=== PATIENT | female | born 1985 | race Caucasian/White ===

== ENCOUNTER 2022-10-28 04:02 | Emergency (ER) | payer MEDICAID, SELFPAY ==
--- NOTE | ~2022-10-28 | CT_ITS ---
EXAMINATION: CT ABDOMEN AND PELVIS WITH CONTRAST CLINICAL INFORMATION: Diffuse pain COMPARISON: None TECHNIQUE: Multidetector volumetric images were obtained from the superior aspect of the liver through the pubic symphysis following administration 85 mL of Omnipaque 350 intravenous contrast. Sagittal and coronal reformatted images were obtained on the technologist's workstation. Oral contrast: No This CT examination was performed using dose optimization techniques as appropriate, variously including the following: *Automated exposure control *Adjustment of mA and/or kV according to patient size (this includes techniques or standardized protocols for targeted exams where dose is matched to indication/reason for exam; i.e. extremities or head) *Use of iterative reconstruction technique DLP: 803 mGy-cm FINDINGS: LUNG BASES: The visualized lung bases are unremarkable. LIVER, GALLBLADDER, AND BILIARY TREE: The liver is normal in size, shape, and attenuation. No focal hepatic lesion or biliary ductal dilatation is present. The gallbladder is unremarkable with no evidence of radiopaque gallstones, gallbladder wall thickening, or obvious pericholecystic inflammatory changes. PANCREAS: Unremarkable. SPLEEN: Unremarkable. ADRENAL GLANDS: Unremarkable. KIDNEYS AND URETERS: The kidneys are normal in size, shape, and attenuation. No hydronephrosis, hydroureter, or calculi seen. No perinephric stranding. BLADDER: Unremarkable. GASTROINTESTINAL TRACT: The small and large bowel are unremarkable. The appendix is unremarkable. ABDOMINAL WALL: No significant hernia is appreciated. LYMPH NODES: Normal. VASCULAR: Unremarkable. PELVIC VISCERA: Uterus and adnexa unremarkable. OSSEOUS STRUCTURES: No acute or suspicious osseous abnormalities. CT/CT abdomen pelvis w IV con IMPRESSION: No acute findings within the abdomen or pelvis to explain the patient's symptomatology.
[2022-10-28 04:27] VITALS: BP 132/76; PULSE 78; RESP 16; TEMP 36.3; O2SAT 98; BMI 33.2
[2022-10-28 04:52] LABS: Basophils Percent Auto 0.4 % (0-2); Eosinophils Absolute Auto 0.2 X10*3/uL (0.0-0.4); Eosinophils Percent Auto 2.6 % (0-4); Hematocrit 34.8 % (37.0-47.0); Hemoglobin 11.3 g/dl (12.0-16.0); Imm Gran Abs Auto 0.02 X10*3/uL (0.00-0.03); Imm Gran Pct Auto 0.2 % (0.0-0.4); Lymphocytes Absolute Auto 2.2 X10*3/uL (1.2-4.9); Lymphocytes Percent Auto 27.7 % (20-40); MANUAL DIFF FLAG NO; Mean Corpuscular HGB Conc 32.5 g/dl (31.0-35.0); Mean Corpuscular Hemoglobin 24.4 pg (27.0-33.0); Mean Platelet Volume 8.8 fL (9.4-12.3); Monocytes Absolute Auto 0.4 X10*3/uL (0.1-1.2); Neutrophils Absolute Auto 5.2 x10*3/uL (2.0-8.3); Neutrophils Percent Auto 64.1 % (45-73); Platelet Count 383 X10*3/uL (160-400); Red Blood Count 4.64 X10*6/uL (4.20-5.50); Red Cell Distribution Width 14.9 % (11.0-16.0)
[2022-10-28 05:02] LABS: IDNOW Serial# 6674DD1D; Strep A Nucleic Acid Negative (Negative)
[2022-10-28 05:06] LABS: Anion Gap 13 (12-20); Blood Urea Nitrogen 8 mg/dL (9-16); Calcium 9.3 mg/dL (8.4-10.2); Carbon Dioxide 25 mmol/L (22-29); Chloride 107 mmol/L (96-108); Creatinine Clr Calc Pharmacy 123.4; Estimated Glomerular Filt Rate > 60; Glucose Random 112 mg/dL (60-115); Potassium 3.7 mmol/L (3.3-5.1); Sodium 141 mmol/L (135-145)
[2022-10-28 05:30] LABS: Influenza A PCR NEGATIVE (Negative); Influenza B PCR NEGATIVE (Negative); Resp Syncy Virus RNA Qual PCR NEGATIVE (Negative); SARS COV2 PCR INHOUSE NEGATIVE (Negative)
[2022-10-28 05:37] VITALS: BP 168/94; PULSE 83; RESP 20; TEMP 36.9; O2SAT 99
[2022-10-28 06:11] LABS: Alanine Aminotransferase 14 U/L (0-31); Albumin Level 4.2 g/dL (3.5-5.0); Alkaline Phosphatase 86 U/L (39-117); Aspartate Amino Transferase 14 U/L (5-31); Bilirubin Direct < 0.2 mg/dL (0.0-0.5); Bilirubin Total 0.5 mg/dL (0.0-1.0); Lipase 12 U/L (8-78); Total Protein 6.5 g/dL (6.5-8.0)
--- NOTE | 2022-10-28 06:50 | ED_ITS ---
HPI - Abdominal Pain General Chief Complaint: Abdominal Pain Stated Complaint: abdominal pain Time Seen by Provider: 10/28/22 06:33 Source: patient History of Present Illness HPI narrative: Patient states she has been having abdominal pain for over 6 months. She states she has been to multiple other emergency department in the state. She has had a CT scan and ultrasound several months ago which apparently were negative. She has seen a rhia but has not had endoscopy. She has tried multiple [id number] meds. Initially she was on Protonix but it stopped helping. Pain is epigastric and bilateral upper abdomen. No radiation to back. Positive nausea without vomiting. She states she has been coughing and it is at strands of blood in it. She also complains of hemorrhoids and states that the bleeding every time she has bowel movement. She cannot recall the last time she has had a bowel movement states she has been constipated which is been an ongoing issue and typically has bowel movements anywhere from every 4 days to every 2 weeks. She has been taking facr-kbo-yczfhus laxatives which he states ?do not f--ing help She denies urinary symptoms. No fevers or chills. Related Data Previous Rx's Medication Instructions Recorded metoclopramide HCl 10 mg tablet 10 mg PO Q6H PRN nausea and 10/28/22 vomiting #30 tabs omeprazole 20 mg capsule,delayed 20 mg PO BID #60 caps 10/28/22 release Allergies Allergy/AdvReac Type Severity Reaction Status Date / Time codeine Allergy Anaphylaxis Verified 10/28/22 04:26 amoxicillin AdvReac Rash Verified 10/28/22 04:26 Review of Systems Comments: No fevers or chills Comments: No chest pain Comments: Cough with hemoptysis. No dyspnea Comments: Abdominal pain is described Comments: No urinary symptoms Comments: No rash Comments: No focal deficit Comments: 10 lb weight loss PMFSH Social History Social History Alcohol intake: never Smoked in Last 30 Days: No Use of substances other than those prescribed or required for medical reasons: No Advance Directives: No Patient : No Physical Exam ED Vital Signs: Vital Signs - 24 hr 10/28/22 04:27 10/28/22 05:37 10/28/22 06:58 Temperature 97.4 F 98.4 F 98 F Pulse Rate 78 83 71 Respiratory Rate 16 20 18 Blood Pressure 132/76 168/94 H 115/48 L Pulse Oximetry 98 99 98 Oxygen Delivery Method Room Air Room Air Room Air 10/28/22 09:59 Temperature 98.2 F Pulse Rate 69 Respiratory Rate 14 Blood Pressure 112/61 Pulse Oximetry 98 Oxygen Delivery Method Room Air BMI result Body Mass Index 33.2 Const Other: Awake and alert. Tearful. Resp Other: Clear and equal bilaterally Cardio Other: Regular rate and rhythm GI Other: Soft. Nondistended. Tender epigastrium. No Hummel sign. No organomegaly. No lower abdominal tenderness. Skin Other: Warm pink and dry Neuro Other: Nonfocal Medical Decision Making Medical Decision Making MDM Narrative: Patient with acute on chronic abdominal pain. Multiple potential etiologies include gastritis, peptic ulcer disease, pancreatitis, gastroparesis, undifferentiated abdominal pain, hepatitis, inflammatory bowel disease, irritable bowel syndrome. Constipation Since pain is mostly epigastric, will treat with GI cocktail and Reglan for now. IV fluids. I discussed with her risks and benefits of further imaging. It has been several months since she has had a CT scan. If she does have inflammatory bowel as it may be worthwhile to do a CT scan to look for inflammatory changes. Diverticulitis would also be diagnosable at this point. 06:55. Workup shows mild anemia with a hemoglobin of 11.3, likely iron deficient with an MCV of 75. Chemistries are unremarkable with a normal creatinine, normal lipase, normal LFTs. Respiratory viral panel negative 10:28. Re-evaluation shows patient is feeling somewhat better after medication. CT scan shows no abnormalities to account for patient's symptoms. I will discharge patient home on omeprazole and Reglan for symptomatic relief and stomach acid control. Will have patient follow-up with gastroenterology and primary care Lab Data 10/28/22 04:46 10/28/22 04:46 Labs: Lab Results 10/28/22 10/28/22 10/28/22 Range/Units 04:46 04:46 04:46 WBC 8.0 (4.8-10.8) X10*3/uL RBC 4.64 (4.20-5.50) X10*6/uL Hgb 11.3 L (12.0-16.0) g/dl Hct 34.8 L (37.0-47.0) % MCV 75.0 L (80.0-98.0) fL MCH 24.4 L (27.0-33.0) pg MCHC 32.5 (31.0-35.0) g/dl RDW 14.9 (11.0-16.0) % Plt Count 383 (160-400) X10*3/uL MPV 8.8 L (9.4-12.3) fL Immature Gran % (Auto) 0.2 (0.0-0.4) % Neut % (Auto) 64.1 (45-73) % Lymph % (Auto) 27.7 (20-40) % [place] % (Auto) 5.0 (2-11) % Eos % (Auto) 2.6 (0-4) % Baso % (Auto) 0.4 (0-2) % Lymph # (Auto) 2.2 (1.2-4.9) X10*3/uL [place] # (Auto) 0.4 (0.1-1.2) X10*3/uL Eos # (Auto) 0.2 (0.0-0.4) X10*3/uL Baso # (Auto) 0.0 (0.0-0.2) X10*3/uL Abs Immat Gran (auto) 0.02 (0.00-0.03) X10*3/uL Absolute Neuts (auto) 5.2 (2.0-8.3) x10*3/uL Absolute Nucleated RBC 0.000 (0.0-0.012) X10*3/uL Nucleated RBC % (auto) 0.0 (0.0-0.2) /100WBC Sodium 141 (135-145) mmol/L Potassium 3.7 (3.3-5.1) mmol/L Chloride 107 (96-108) mmol/L Carbon Dioxide 25 (22-29) mmol/L Anion Gap 13 (12-20) BUN 8 L (9-16) mg/dL Creatinine 0.75 (0.5-1.4) mg/dL Estim Creat Clear Calc 123.4 Estimated GFR > 60 Random Glucose 112 (60-115) mg/dL Lactic Acid (0.5-2.0) mmol/L Calcium 9.3 (8.4-10.2) mg/dL Total Bilirubin 0.5 (0.0-1.0) mg/dL Direct Bilirubin < 0.2 (0.0-0.5) mg/dL AST 14 (5-31) U/L ALT 14 (0-31) U/L Alkaline Phosphatase 86 (39-117) U/L Total Protein 6.5 (6.5-8.0) g/dL Albumin 4.2 (3.5-5.0) g/dL Lipase 12 (8-78) U/L Urine Color Urine Appearance Urine pH (5.0-9.0) Ur Specific [place] (1.005-1.025) Urine Protein (Neg-Trace) mg/dL Urine Glucose (UA) (Negative) mg/dL Urine Ketones (Negative) mg/dL Urine Blood (Negative) Urine Nitrite (Negative) Ur Leukocyte Esterase (Negative) Urine Test (NEGATIVE) Urine Opiates Screen (Not Detect) Urine Fentanyl Screen (Not Detect) Ur Barbiturates Screen (Not Detect) Ur Phencyclidine Scrn (Not Detect) Ur Amphetamines Screen (Not Detect) U Benzodiazepines Scrn (Not Detect) Urine Cocaine Screen (Not Detect) U Marijuana (THC) Screen (Not Detect) Influenza Type A (PCR) (Negative) Influenza Type B (PCR) (Negative) RSV RNA Qual (PCR) (Negative) SARS-CoV-2 RNA (RT-PCR) (Negative) S. pyogenes GrpA [place] Negative (Negative) 10/28/22 10/28/22 10/28/22 Range/Units 04:46 07:48 07:48 WBC (4.8-10.8) X10*3/uL RBC (4.20-5.50) X10*6/uL Hgb (12.0-16.0) g/dl Hct (37.0-47.0) % MCV (80.0-98.0) fL MCH (27.0-33.0) pg MCHC (31.0-35.0) g/dl RDW (11.0-16.0) % Plt Count (160-400) X10*3/uL MPV (9.4-12.3) fL Immature Gran % (Auto) (0.0-0.4) % Neut % (Auto) (45-73) % Lymph % (Auto) (20-40) % [place] % (Auto) (2-11) % Eos % (Auto) (0-4) % Baso % (Auto) (0-2) % Lymph # (Auto) (1.2-4.9) X10*3/uL [place] # (Auto) (0.1-1.2) X10*3/uL Eos # (Auto) (0.0-0.4) X10*3/uL Baso # (Auto) (0.0-0.2) X10*3/uL Abs Immat Gran (auto) (0.00-0.03) X10*3/uL Absolute Neuts (auto) (2.0-8.3) x10*3/uL Absolute Nucleated RBC (0.0-0.012) X10*3/uL Nucleated RBC % (auto) (0.0-0.2) /100WBC Sodium (135-145) mmol/L Potassium (3.3-5.1) mmol/L Chloride (96-108) mmol/L Carbon Dioxide (22-29) mmol/L Anion Gap (12-20) BUN (9-16) mg/dL Creatinine (0.5-1.4) mg/dL Estim Creat Clear Calc Estimated GFR Random Glucose (60-115) mg/dL Lactic Acid 0.8 (0.5-2.0) mmol/L Calcium (8.4-10.2) mg/dL Total Bilirubin (0.0-1.0) mg/dL Direct Bilirubin (0.0-0.5) mg/dL AST (5-31) U/L ALT (0-31) U/L Alkaline Phosphatase (39-117) U/L Total Protein (6.5-8.0) g/dL Albumin (3.5-5.0) g/dL Lipase (8-78) U/L Urine Color Yellow Urine Appearance Cloudy Urine pH 6.0 (5.0-9.0) Ur Specific [place] 1.015 (1.005-1.025) Urine Protein Negative (Neg-Trace) mg/dL Urine Glucose (UA) Negative (Negative) mg/dL Urine Ketones Negative (Negative) mg/dL Urine Blood Negative (Negative) Urine Nitrite Negative (Negative) Ur Leukocyte Esterase Negative (Negative) Urine Test (NEGATIVE) Urine Opiates Screen (Not Detect) Urine Fentanyl Screen (Not Detect) Ur Barbiturates Screen (Not Detect) Ur Phencyclidine Scrn (Not Detect) Ur Amphetamines Screen (Not Detect) U Benzodiazepines Scrn (Not Detect) Urine Cocaine Screen (Not Detect) U Marijuana (THC) Screen (Not Detect) Influenza Type A (PCR) NEGATIVE (Negative) Influenza Type B (PCR) NEGATIVE (Negative) RSV RNA Qual (PCR) NEGATIVE (Negative) SARS-CoV-2 RNA (RT-PCR) NEGATIVE (Negative) S. pyogenes GrpA [place] (Negative) 10/28/22 10/28/22 Range/Units 07:48 07:48 WBC (4.8-10.8) X10*3/uL RBC (4.20-5.50) X10*6/uL Hgb (12.0-16.0) g/dl Hct (37.0-47.0) % MCV (80.0-98.0) fL MCH (27.0-33.0) pg MCHC (31.0-35.0) g/dl RDW (11.0-16.0) % Plt Count (160-400) X10*3/uL MPV (9.4-12.3) fL Immature Gran % (Auto) (0.0-0.4) % Neut % (Auto) (45-73) % Lymph % (Auto) (20-40) % [place] % (Auto) (2-11) % Eos % (Auto) (0-4) % Baso % (Auto) (0-2) % Lymph # (Auto) (1.2-4.9) X10*3/uL [place] # (Auto) (0.1-1.2) X10*3/uL Eos # (Auto) (0.0-0.4) X10*3/uL Baso # (Auto) (0.0-0.2) X10*3/uL Abs Immat Gran (auto) (0.00-0.03) X10*3/uL Absolute Neuts (auto) (2.0-8.3) x10*3/uL Absolute Nucleated RBC (0.0-0.012) X10*3/uL Nucleated RBC % (auto) (0.0-0.2) /100WBC Sodium (135-145) mmol/L Potassium (3.3-5.1) mmol/L Chloride (96-108) mmol/L Carbon Dioxide (22-29) mmol/L Anion Gap (12-20) BUN (9-16) mg/dL Creatinine (0.5-1.4) mg/dL Estim Creat Clear Calc Estimated GFR Random Glucose (60-115) mg/dL Lactic Acid (0.5-2.0) mmol/L Calcium (8.4-10.2) mg/dL Total Bilirubin (0.0-1.0) mg/dL Direct Bilirubin (0.0-0.5) mg/dL AST (5-31) U/L ALT (0-31) U/L Alkaline Phosphatase (39-117) U/L Total Protein (6.5-8.0) g/dL Albumin (3.5-5.0) g/dL Lipase (8-78) U/L Urine Color Urine Appearance Urine pH (5.0-9.0) Ur Specific [place] (1.005-1.025) Urine Protein (Neg-Trace) mg/dL Urine Glucose (UA) (Negative) mg/dL Urine Ketones (Negative) mg/dL Urine Blood (Negative) Urine Nitrite (Negative) Ur Leukocyte Esterase (Negative) Urine Test NEGATIVE (NEGATIVE) Urine Opiates Screen Not Detected (Not Detect) Urine Fentanyl Screen Not Detected (Not Detect) Ur Barbiturates Screen Not Detected (Not Detect) Ur Phencyclidine Scrn Not Detected (Not Detect) Ur Amphetamines Screen Not Detected (Not Detect) U Benzodiazepines Scrn Not Detected (Not Detect) Urine Cocaine Screen Not Detected (Not Detect) U Marijuana (THC) Screen Not Detected (Not Detect) Influenza Type A (PCR) (Negative) Influenza Type B (PCR) (Negative) RSV RNA Qual (PCR) (Negative) SARS-CoV-2 RNA (RT-PCR) (Negative) S. pyogenes GrpA [place] (Negative) Medications Administered Discontinued Medications Generic Name Dose Route Start Last Admin Trade Name Freq PRN Reason Stop Dose Admin Al Hydroxide/Mg Hydroxide 30 ml 10/28/22 06:46 10/28/22 08:57 Magnesium Hydrox/Alum Hydrox 30 Ml Oral.Susp PO 10/28/22 06:47 30 ml ONCE ONE Administration Iohexol 85 ml 10/28/22 09:10 10/28/22 09:11 Iohexol 350 Mg/Ml 100 Ml Infus..Btl IV 10/28/22 09:11 85 ml ONCE ONE Administration Lidocaine HCl 15 ml 10/28/22 06:46 10/28/22 08:57 Lidocaine Hcl Viscous 2 % 15 Ml Solution PO 10/28/22 06:47 15 ml ONCE ONE Administration Metoclopramide HCl 10 mg 10/28/22 06:46 10/28/22 08:55 Metoclopramide Hcl 10 Mg/2 Ml Vial IVPUSH 10/28/22 06:47 10 mg ONCE ONE Administration Ondansetron HCl 4 mg 10/28/22 06:46 10/28/22 08:53 Ondansetron Hcl 4 Mg/2 Ml Vial IVPUSH 10/28/22 06:47 4 mg ONCE ONE Administration Pantoprazole Sodium 40 mg 10/28/22 06:46 10/28/22 08:54 Pantoprazole Sodium 40 Mg/10 Ml Vial IVPUSH 10/28/22 06:47 40 mg ONCE ONE Administration Discharge Plan Discharge Clinical Impression: Abdominal pain Patient Disposition: Home, Self-Care Instructions: Abdominal Pain (ED) Additional Instructions: Reglan, metoclopramide this medication for both nausea and to improve motility of food through the stomach and intestines. Prilosec is to control stomach acid. Follow-up with Gastroenterology for your ongoing abdominal symptoms. Primary care for other health maintenance. Prescriptions: New omeprazole 20 mg capsule,delayed release(DR/EC) 20 mg PO BID Qty: 60 0RF metoclopramide HCl 10 mg tablet 10 mg PO Q6H PRN (Reason: nausea and vomiting) Qty: 30 0RF
[2022-10-28 06:58] VITALS: BP 115/48; PULSE 71; RESP 18; TEMP 36.6; O2SAT 98
[2022-10-28 08:08] LABS: Amphetamine Screen Urine Not Detected (Not Detect); Barbiturates, Urine Not Detected (Not Detect); Benzodiazepines Screen Urine Not Detected (Not Detect); Cannabinoid Screen Urine Not Detected (Not Detect); Cocaine Screen Urine Not Detected (Not Detect); Fentanyl, urine Not Detected (Not Detect); Lactic Acid 0.8 mmol/L (0.5-2.0); Opiate Screen Urine Not Detected (Not Detect); Phencyclidine Screen Urine Not Detected (Not Detect)
[2022-10-28 08:14] LABS: Appearance Urine Cloudy; Color Urine Yellow; Glucose Urine UA Negative (Negative); Leukocyte Esterase Urine Negative (Negative); Nitrite Urine Negative (Negative); Specific Gravity - Urine 1.015 (1.005-1.025); Urine Blood Negative (Negative); Urine Ketones Negative (Negative); Urine Protein Negative (Neg-Trace)
[2022-10-28 08:15] LABS: UPreg QC Valid YES; Urine Pregnancy NEGATIVE (NEGATIVE)
[2022-10-28] MEDS: ondansetron HCL 4 MG/2 ML VIAL IVPUSH (08:53)
[2022-10-28] MEDS: Pantoprazole Sodium 40 MG/10 ML VIAL IVPUSH (08:54)
[2022-10-28] MEDS: Metoclopramide HCl 10 MG/2 ML VIAL IVPUSH (08:55)
[2022-10-28] MEDS: Lidocaine HCl Viscous 2 % 15 ML SOLUTION PO (08:57)
[2022-10-28] MEDS: Magnesium Hydrox/Alum Hydrox 30 ML ORAL.SUSP PO (08:57)
[2022-10-28] MEDS: iohexoL 350 MG/ML 100 ML INFUS..BTL 85 ML IV (09:11)
--- NOTE | 2022-10-28 09:15 | PC.NURSE ---
pt is a/o x 4 no sob/jordin noted. lungs - cta. speaks in full sentences. abd obese, soft and non-tender. bxs + x 4 quads. no edema noted. heplock # 20, r ac. pt aware of plan of care.
[2022-10-28 09:59] VITALS: BP 112/61; PULSE 69; RESP 14; TEMP 36.8; O2SAT 98
[2022-10-28 11:42] LABS: TSH reflex Free T4 6.39 uIU/mL (0.32-4.0)
[2022-10-28 12:15] LABS: Free T4 (Free Thyroxine) 0.89 ng/dL (0.71-1.85)
== END 2022-10-28 11:05 | disposition home or self-care (01) ==
PROVIDERS: Emergency Medicine; Emergency Provider Emergency Medicine
DX: R10.9 Unspecified abdominal pain (principal); Z20.822 Contact with and (suspected) exposure to COVID-19; Z20.828 Contact with and (suspected) exposure to other viral communicable diseases; D64.9 Anemia, unspecified; Z79.899 Other long term (current) drug therapy
CPT/HCPCS: 0241U; 36415; 74177; 80048; 80076; 80307; 81003; 81025; 83605; 83690; 84439; 84443; 85025; 87651; 96374; 96375; 99284; J2405; J2765; Q9967

== ENCOUNTER 2023-01-22 23:22 | Emergency (ER) | payer MEDICAID, SELFPAY ==
[2023-01-22 23:26] VITALS: BP 158/90; PULSE 88; RESP 18; TEMP 36.9; O2SAT 97; BMI 43.0
--- NOTE | 2023-01-23 01:35 | ED.DENTAL ---
HPI - Dental/Oral General Chief complaint: Dental/Oral Stated complaint: Infection in face? Time Seen by Provider: 01/23/23 01:21 Source: patient Mode of arrival: ambulatory Limitations: no limitations History of Present Illness HPI Narrative: Patient history of dental caries taking clindamycin for last 4 days from ER patient seen also patient to get treatment for H pylori for last 10 days complaining of nausea body supposed to see a dentist next week no fever no chills Related Data Previous Rx's Medication Instructions Recorded metoclopramide HCl 10 mg tablet 10 mg PO Q6H PRN nausea and 10/28/22 vomiting #30 tabs omeprazole 20 mg capsule,delayed 20 mg PO BID #60 caps 10/28/22 release cefuroxime axetil 500 mg tablet 500 mg PO BID #20 tabs 01/23/23 ondansetron 4 mg disintegrating 4 mg PO Q6-8H PRN nausea and 01/23/23 tablet vomiting #10 tabs tramadol 50 mg tablet 50 mg PO Q6H PRN pain #20 tabs 01/23/23 Allergies Allergy/AdvReac Type Severity Reaction Status Date / Time codeine Allergy Anaphylaxis Verified 01/22/23 23:29 amoxicillin AdvReac Rash Verified 01/22/23 23:29 Review of Systems Review of Systems: Yes all other systems are reviewed and are negative [facility] Social History Social History Alcohol intake: never Advance Directives: No Advance Directives Information Provided: Yes Physical Exam Vital Signs: Vital Signs: Last Vital Signs Temp 98.4 F 01/22/23 23:26 Pulse 88 01/22/23 23:26 Resp 18 01/22/23 23:26 BP 158/90 H 01/22/23 23:26 Pulse Ox 97 01/22/23 23:26 O2 Del Method Room Air 01/22/23 23:26 BMI result Body Mass Index 43.0 HEENT: Head: Yes normocephalic and Yes atraumatic Ears: hearing grossly normal bilaterally, TM's normal bilaterally and EAC's normal Mouth: Normal oral and palatal mucosa present Teeth image: 1. Dental caries tender to touch no gum swelling or abscess 2. Dental Caries tender to touch no gum swelling or abscess Resp: Effort & Inspection: normal respiratory effort Auscultation: clear to auscultation bilaterally Cardio: Palpation: normal PMI Rate: regular rate Rhythm: regular rhythm GI: Inspection: Yes normal to inspection Palpation (GI): Soft to palpation and nontender Auscultation: normal bowel sounds Medications Administered Discontinued Medications Generic Name Dose Route Start Last Admin Trade Name Freq PRN Reason Stop Dose Admin Cefuroxime Axetil 500 mg 01/23/23 01:33 01/23/23 01:53 Cefuroxime Axetil 500 Mg Tablet PO 01/23/23 01:34 500 mg ONCE ONE Administration Ondansetron HCl 4 mg 01/23/23 01:33 01/23/23 01:53 Ondansetron Odt 4 Mg Tab.Rapdis TRANSLINGU 01/23/23 01:34 4 mg ONCE ONE Administration Tramadol HCl 50 mg 01/23/23 01:33 01/23/23 01:53 Tramadol Hcl 50 Mg Tablet PO 01/23/23 01:34 50 mg ONCE ONE Administration Medical Decision Making Medical Decision Making MDM Narrative: Patient dental caries discharge patient home Ceftin tramadol advised to follow-up with dentist as scheduled Discharge Plan Discharge Clinical Impression: Dental caries Patient Disposition: Home, Self-Care Instructions: Toothache (ED) Additional Instructions: Pain medication antibiotic as prescribed Stop taking clindamycin as maybe is giving you the side effects Prescriptions: New tramadol 50 mg tablet 50 mg PO Q6H PRN (Reason: pain) Qty: 20 0RF cefuroxime axetil 500 mg tablet 500 mg PO BID Qty: 20 0RF ondansetron 4 mg tablet,disintegrating 4 mg PO Q6-8H PRN (Reason: nausea and vomiting) Qty: 10 0RF No Action omeprazole 20 mg capsule,delayed release(DR/EC) 20 mg PO BID Qty: 60 0RF metoclopramide HCl 10 mg tablet 10 mg PO Q6H PRN (Reason: nausea and vomiting) Qty: 30 0RF Interventions: ED Discharge Assessment Last Done: 01/23/23 01:56 Discharge Date/Time: 01/23/23 01:56
[2023-01-23] MEDS: traMADoL HCL 50 MG TABLET PO (01:53)
[2023-01-23] MEDS: Ondansetron ODT 4 MG TAB.RAPDIS TRANSLINGU (01:53)
== END 2023-01-23 01:56 | disposition home or self-care (01) ==
PROVIDERS: Emergency Provider Internal Medicine
DX: K02.9 Dental caries, unspecified (principal)
CPT/HCPCS: 99283

== ENCOUNTER 2023-04-09 14:12 | Emergency (ER) | payer MEDICAID, SELFPAY ==
--- NOTE | 2023-04-09 14:33 | ED.GENADULT ---
HPI - General Adult General Chief complaint: Abdominal Pain Stated complaint: abd pain Related Data Previous Rx's Medication Instructions Recorded metoclopramide HCl 10 mg tablet 10 mg PO Q6H PRN nausea and 10/28/22 vomiting #30 tabs omeprazole 20 mg capsule,delayed 20 mg PO BID #60 caps 10/28/22 release cefuroxime axetil 500 mg tablet 500 mg PO BID #20 tabs 01/23/23 ondansetron 4 mg disintegrating 4 mg PO Q6-8H PRN nausea and 01/23/23 tablet vomiting #10 tabs tramadol 50 mg tablet 50 mg PO Q6H PRN pain #20 tabs 01/23/23 Allergies Allergy/AdvReac Type Severity Reaction Status Date / Time codeine Allergy Anaphylaxis Verified 01/22/23 23:29 amoxicillin AdvReac Rash Verified 01/22/23 23:29 [facility] Social History Social History Alcohol intake: never Advance Directives: No Advance Directives Information Provided: No Physical Exam ED Vital Signs: BMI result Body Mass Index 37.5 Course Course Course Narrative: This is a rapid medical exam: Additional HPI, ROS, PE not included below will be deferred to primary provider. Patient is a 37-year-old female presenting to the emergency department with complaint of epigastric pain, worse after eating for two weeks. Has known hiatal hernia. States is attempting to get in with GI but states cannot be seen for over 3 months. Reports vomiting with eating most of the time. Also reports fever of 105 four days ago. Afebrile here. Denies urinary symptoms. Seen here in September for similar symptopms. Plan: labs, UA Medical Decision Making Lab Data 04/09/23 15:04 04/09/23 15:04 Labs: Lab Results 04/09/23 04/09/23 04/09/23 Range/Units 15:04 15:04 15:04 WBC 8.0 (4.8-10.8) X10*3/uL RBC 4.80 (4.20-5.50) X10*6/uL Hgb 11.9 L (12.0-16.0) g/dl Hct 36.5 L (37.0-47.0) % MCV 76.0 L (80.0-98.0) fL MCH 24.8 L (27.0-33.0) pg MCHC 32.6 (31.0-35.0) g/dl RDW 14.5 (11.0-16.0) % Plt Count 357 (160-400) X10*3/uL MPV 8.6 L (9.4-12.3) fL Immature Gran % (Auto) 0.1 (0.0-0.4) % Neut % (Auto) 69.5 (45-73) % Lymph % (Auto) 22.6 (20-40) % [place] % (Auto) 5.5 (2-11) % Eos % (Auto) 1.8 (0-4) % Baso % (Auto) 0.5 (0-2) % Lymph # (Auto) 1.8 (1.2-4.9) X10*3/uL [place] # (Auto) 0.4 (0.1-1.2) X10*3/uL Eos # (Auto) 0.1 (0.0-0.4) X10*3/uL Baso # (Auto) 0.0 (0.0-0.2) X10*3/uL Abs Immat Gran (auto) 0.01 (0.00-0.03) X10*3/uL Absolute Neuts (auto) 5.5 (2.0-8.3) x10*3/uL Absolute Nucleated RBC 0.000 (0.0-0.012) X10*3/uL Nucleated RBC % (auto) 0.0 (0.0-0.2) /100WBC PT 11.8 (10.0-13.1) SEC INR 1.0 (0.9-1.1) Sodium 142 (135-145) mmol/L Potassium 3.9 (3.3-5.1) mmol/L Chloride 109 H (96-108) mmol/L Carbon Dioxide 25 (22-29) mmol/L Anion Gap 12 (12-20) BUN 10 (9-16) mg/dL Creatinine 0.82 (0.5-1.4) mg/dL Estim Creat Clear Calc 92.9 Estimated GFR > 60 Random Glucose 93 (60-115) mg/dL Calcium 10.2 D (8.4-10.2) mg/dL Total Bilirubin 0.5 (0.0-1.0) mg/dL AST 12 (5-31) U/L ALT 13 (0-31) U/L Alkaline Phosphatase 82 (39-117) U/L Total Protein 7.3 (6.5-8.0) g/dL Albumin 4.4 (3.5-5.0) g/dL Lipase 20 (8-78) U/L Beta HCG, Quant mIU/mL 04/09/23 Range/Units 15:04 WBC (4.8-10.8) X10*3/uL RBC (4.20-5.50) X10*6/uL Hgb (12.0-16.0) g/dl Hct (37.0-47.0) % MCV (80.0-98.0) fL MCH (27.0-33.0) pg MCHC (31.0-35.0) g/dl RDW (11.0-16.0) % Plt Count (160-400) X10*3/uL MPV (9.4-12.3) fL Immature Gran % (Auto) (0.0-0.4) % Neut % (Auto) (45-73) % Lymph % (Auto) (20-40) % [place] % (Auto) (2-11) % Eos % (Auto) (0-4) % Baso % (Auto) (0-2) % Lymph # (Auto) (1.2-4.9) X10*3/uL [place] # (Auto) (0.1-1.2) X10*3/uL Eos # (Auto) (0.0-0.4) X10*3/uL Baso # (Auto) (0.0-0.2) X10*3/uL Abs Immat Gran (auto) (0.00-0.03) X10*3/uL Absolute Neuts (auto) (2.0-8.3) x10*3/uL Absolute Nucleated RBC (0.0-0.012) X10*3/uL Nucleated RBC % (auto) (0.0-0.2) /100WBC PT (10.0-13.1) SEC INR (0.9-1.1) Sodium (135-145) mmol/L Potassium (3.3-5.1) mmol/L Chloride (96-108) mmol/L Carbon Dioxide (22-29) mmol/L Anion Gap (12-20) BUN (9-16) mg/dL Creatinine (0.5-1.4) mg/dL Estim Creat Clear Calc Estimated GFR Random Glucose (60-115) mg/dL Calcium (8.4-10.2) mg/dL Total Bilirubin (0.0-1.0) mg/dL AST (5-31) U/L ALT (0-31) U/L Alkaline Phosphatase (39-117) U/L Total Protein (6.5-8.0) g/dL Albumin (3.5-5.0) g/dL Lipase (8-78) U/L Beta HCG, Quant < 2 mIU/mL Discharge Plan Discharge Clinical Impression: Abdominal pain Patient Disposition: Elopement Prescriptions: No Action omeprazole 20 mg capsule,delayed release(DR/EC) 20 mg PO BID Qty: 60 0RF metoclopramide HCl 10 mg tablet 10 mg PO Q6H PRN (Reason: nausea and vomiting) Qty: 30 0RF tramadol 50 mg tablet 50 mg PO Q6H PRN (Reason: pain) Qty: 20 0RF cefuroxime axetil 500 mg tablet 500 mg PO BID Qty: 20 0RF ondansetron 4 mg tablet,disintegrating 4 mg PO Q6-8H PRN (Reason: nausea and vomiting) Qty: 10 0RF Interventions: ED Discharge Assessment Last Done: 04/09/23 19:20 Discharge Date/Time: 04/09/23 19:20
[2023-04-09 14:36] VITALS: BP 89/71; PULSE 78; RESP 20; TEMP 36.8; BMI 37.5
[2023-04-09 15:09] LABS: MANUAL DIFF FLAG NO
[2023-04-09 15:11] LABS: Basophils Percent Auto 0.5 % (0-2); Eosinophils Absolute Auto 0.1 X10*3/uL (0.0-0.4); Eosinophils Percent Auto 1.8 % (0-4); Hematocrit 36.5 % (37.0-47.0); Hemoglobin 11.9 g/dl (12.0-16.0); Imm Gran Abs Auto 0.01 X10*3/uL (0.00-0.03); Imm Gran Pct Auto 0.1 % (0.0-0.4); Lymphocytes Absolute Auto 1.8 X10*3/uL (1.2-4.9); Lymphocytes Percent Auto 22.6 % (20-40); Mean Corpuscular HGB Conc 32.6 g/dl (31.0-35.0); Mean Corpuscular Hemoglobin 24.8 pg (27.0-33.0); Mean Platelet Volume 8.6 fL (9.4-12.3); Monocytes Absolute Auto 0.4 X10*3/uL (0.1-1.2); Monocytes Percent Auto 5.5 % (2-11); Neutrophils Absolute Auto 5.5 x10*3/uL (2.0-8.3); Neutrophils Percent Auto 69.5 % (45-73); Platelet Count 357 X10*3/uL (160-400); Red Cell Distribution Width 14.5 % (11.0-16.0)
[2023-04-09 15:18] LABS: Prothrombin Time 11.8 SEC (10.0-13.1)
[2023-04-09 15:23] LABS: Alanine Aminotransferase 13 U/L (0-31); Albumin Level 4.4 g/dL (3.5-5.0); Alkaline Phosphatase 82 U/L (39-117); Anion Gap 12 (12-20); Aspartate Amino Transferase 12 U/L (5-31); Bilirubin Total 0.5 mg/dL (0.0-1.0); Blood Urea Nitrogen 10 mg/dL (9-16); Calcium 10.2 mg/dL (8.4-10.2); Carbon Dioxide 25 mmol/L (22-29); Chloride 109 mmol/L (96-108); Creatinine Clr Calc Pharmacy 92.9; Estimated Glomerular Filt Rate > 60; Glucose Random 93 mg/dL (60-115); Lipase 20 U/L (8-78); Potassium 3.9 mmol/L (3.3-5.1); Sodium 142 mmol/L (135-145); Total Protein 7.3 g/dL (6.5-8.0)
[2023-04-09 15:31] LABS: HCG Quantitative < 2 mIU/mL
== END 2023-04-09 19:20 | disposition left against medical advice (07) ==
PROVIDERS: Registered Nurse Emergency; Emergency Provider Emergency Medicine
DX: R10.13 Epigastric pain (principal); Z79.899 Other long term (current) drug therapy
CPT/HCPCS: 36415; 80053; 83690; 84702; 85025; 85610; 99282; 99283

== ENCOUNTER 2023-05-05 13:14 | Emergency (ER) | payer MEDICAID, SELFPAY ==
--- NOTE | ~2023-05-05 | XR_ITS ---
EXAMINATION: XR ABDOMEN KUB CLINICAL INDICATION: Constipation, abdominal pain. COMPARISON: CT scan of the abdomen and pelvis dated 10/28/2022. TECHNIQUE: AP view of the abdomen. FINDINGS: The bowel gas pattern is normal with no evidence of ileus or obstruction. No unusual soft tissue calcifications are noted. The bones are unremarkable. XR/XR KUB IMPRESSION: Unremarkable examination.
[2023-05-05 13:21] VITALS: BP 132/81; PULSE 64; RESP 16; TEMP 36.7; O2SAT 99; BMI 37.5
--- NOTE | 2023-05-05 13:22 | ED.ABDPAIN ---
HPI - Abdominal Pain General Chief Complaint: Abdominal Pain Stated Complaint: Back & R/L Side Pain No Injury Time Seen by Provider: 05/05/23 16:25 Related Data Previous Rx's Medication Instructions Recorded metoclopramide HCl 10 mg tablet 10 mg PO Q6H PRN nausea and 10/28/22 vomiting #30 tabs omeprazole 20 mg capsule,delayed 20 mg PO BID #60 caps 10/28/22 release cefuroxime axetil 500 mg tablet 500 mg PO BID #20 tabs 01/23/23 ondansetron 4 mg disintegrating 4 mg PO Q6-8H PRN nausea and 01/23/23 tablet vomiting #10 tabs tramadol 50 mg tablet 50 mg PO Q6H PRN pain #20 tabs 01/23/23 lorazepam 1 mg tablet (Ativan) 1 mg PO BEDTIME PRN anxiety/sleep 05/05/23 #14 tabs tramadol 50 mg tablet 50 mg PO Q6H PRN pain #20 tabs 05/05/23 Allergies Allergy/AdvReac Type Severity Reaction Status Date / Time codeine Allergy Anaphylaxis Verified 01/22/23 23:29 amoxicillin AdvReac Rash Verified 01/22/23 23:29 [facility] Social History Social History Alcohol intake: never Smoked in Last 30 Days: Yes Use of substances other than those prescribed or required for medical reasons: No Advance Directives: No Advance Directives Information Provided: No Patient : No Physical Exam ED Vital Signs: Vital Signs - 24 hr 05/05/23 13:21 05/05/23 16:11 Temperature 98.0 F 98.3 F Pulse Rate 64 65 Respiratory Rate 16 16 Blood Pressure 132/81 144/87 H Pulse Oximetry 99 99 Oxygen Delivery Method Room Air Room Air BMI result Body Mass Index 37.5 Course Course Course Narrative: RME - 37 yo female with history of GERD, hiatial hernia, constipation presenting with acute on chronic bilateral upper abdominal pains that radiates to her back worsening for the last 1 week, started about 2 months ago. Coming in severe waves causing SOB. +constipation without vomiting Plan: labs, KUB and UA Medical Decision Making Medical Decision Making [facility] Narrative: Patient has stable labs with chronic abdominal pain previous workups negative likely has IBS discharge patient home on tramadol and Ativan advised to continue take her dicyclomine follow-up with her PCP Lab Data MDM Lab Attestation statement: I reviewed the patient's lab results. 05/05/23 15:32 05/05/23 15:33 Labs: Lab Results 05/05/23 05/05/23 05/05/23 Range/Units 13:57 13:57 15:32 WBC 8.6 (4.8-10.8) X10*3/uL RBC 4.76 (4.20-5.50) X10*6/uL Hgb 11.9 L (12.0-16.0) g/dl Hct 36.6 L (37.0-47.0) % MCV 76.9 L (80.0-98.0) fL MCH 25.0 L (27.0-33.0) pg MCHC 32.5 (31.0-35.0) g/dl RDW 14.5 (11.0-16.0) % Plt Count 352 (160-400) X10*3/uL MPV 8.8 L (9.4-12.3) fL Immature Gran % (Auto) 0.3 (0.0-0.4) % Neut % (Auto) 68.8 (45-73) % Lymph % (Auto) 24.9 (20-40) % [place] % (Auto) 3.9 (2-11) % Eos % (Auto) 1.6 (0-4) % Baso % (Auto) 0.5 (0-2) % Lymph # (Auto) 2.2 (1.2-4.9) X10*3/uL [place] # (Auto) 0.3 (0.1-1.2) X10*3/uL Eos # (Auto) 0.1 (0.0-0.4) X10*3/uL Baso # (Auto) 0.0 (0.0-0.2) X10*3/uL Abs Immat Gran (auto) 0.03 (0.00-0.03) X10*3/uL Absolute Neuts (auto) 5.9 (2.0-8.3) x10*3/uL Absolute Nucleated RBC 0.000 (0.0-0.012) X10*3/uL Nucleated RBC % (auto) 0.0 (0.0-0.2) /100WBC Sodium (135-145) mmol/L Potassium (3.3-5.1) mmol/L Chloride (96-108) mmol/L Carbon Dioxide (22-29) mmol/L Anion Gap (12-20) BUN (9-16) mg/dL Creatinine (0.5-1.4) mg/dL Estim Creat Clear Calc Estimated GFR Random Glucose (60-115) mg/dL Calcium (8.4-10.2) mg/dL Magnesium (1.6-2.6) mg/dL Total Bilirubin (0.0-1.0) mg/dL Direct Bilirubin (0.0-0.5) mg/dL AST (5-31) U/L ALT (0-31) U/L Alkaline Phosphatase (39-117) U/L Total Protein (6.5-8.0) g/dL Albumin (3.5-5.0) g/dL Lipase (8-78) U/L Urine Color Yellow Urine Appearance Clear Urine pH 7.5 (5.0-9.0) Ur Specific [place] 1.020 (1.005-1.025) Urine Protein Negative (Neg-Trace) mg/dL Urine Glucose (UA) Negative (Negative) mg/dL Urine Ketones Negative (Negative) mg/dL Urine Blood Negative (Negative) Urine Nitrite Negative (Negative) Ur Leukocyte Esterase Negative (Negative) Urine Test NEGATIVE (NEGATIVE) 05/05/23 Range/Units 15:33 WBC (4.8-10.8) X10*3/uL RBC (4.20-5.50) X10*6/uL Hgb (12.0-16.0) g/dl Hct (37.0-47.0) % MCV (80.0-98.0) fL MCH (27.0-33.0) pg MCHC (31.0-35.0) g/dl RDW (11.0-16.0) % Plt Count (160-400) X10*3/uL MPV (9.4-12.3) fL Immature Gran % (Auto) (0.0-0.4) % Neut % (Auto) (45-73) % Lymph % (Auto) (20-40) % [place] % (Auto) (2-11) % Eos % (Auto) (0-4) % Baso % (Auto) (0-2) % Lymph # (Auto) (1.2-4.9) X10*3/uL [place] # (Auto) (0.1-1.2) X10*3/uL Eos # (Auto) (0.0-0.4) X10*3/uL Baso # (Auto) (0.0-0.2) X10*3/uL Abs Immat Gran (auto) (0.00-0.03) X10*3/uL Absolute Neuts (auto) (2.0-8.3) x10*3/uL Absolute Nucleated RBC (0.0-0.012) X10*3/uL Nucleated RBC % (auto) (0.0-0.2) /100WBC Sodium 140 (135-145) mmol/L Potassium 3.7 (3.3-5.1) mmol/L Chloride 108 (96-108) mmol/L Carbon Dioxide 26 (22-29) mmol/L Anion Gap 10 L (12-20) BUN 8 L (9-16) mg/dL Creatinine 0.78 (0.5-1.4) mg/dL Estim Creat Clear Calc 97.8 Estimated GFR > 60 Random Glucose 110 (60-115) mg/dL Calcium 9.5 D (8.4-10.2) mg/dL Magnesium 2.0 (1.6-2.6) mg/dL Total Bilirubin 0.4 (0.0-1.0) mg/dL Direct Bilirubin 0.2 (0.0-0.5) mg/dL AST 11 (5-31) U/L ALT 13 (0-31) U/L Alkaline Phosphatase 78 (39-117) U/L Total Protein 7.2 (6.5-8.0) g/dL Albumin 4.5 (3.5-5.0) g/dL Lipase 17 (8-78) U/L Urine Color Urine Appearance Urine pH (5.0-9.0) Ur Specific [place] (1.005-1.025) Urine Protein (Neg-Trace) mg/dL Urine Glucose (UA) (Negative) mg/dL Urine Ketones (Negative) mg/dL Urine Blood (Negative) Urine Nitrite (Negative) Ur Leukocyte Esterase (Negative) Urine Test (NEGATIVE) Medications Administered Discontinued Medications Generic Name Dose Route Start Last Admin Trade Name Freq PRN Reason Stop Dose Admin Al Hydroxide/Mg Hydroxide 30 ml 05/05/23 17:12 05/05/23 17:23 Magnesium Hydrox/Alum Hydrox 30 Ml Oral.Susp PO 05/05/23 17:13 30 ml ONCE ONE Administration Dicyclomine HCl 20 mg 05/05/23 17:12 05/05/23 17:23 Dicyclomine Hcl 10 Mg Capsule PO 05/05/23 17:13 20 mg ONCE ONE Administration Lorazepam 1 mg 05/05/23 17:12 05/05/23 17:23 Lorazepam 1 Mg Tablet PO 05/05/23 17:13 1 mg ONCE ONE Administration Oxycodone HCl 10 mg 05/05/23 17:12 05/05/23 17:23 Oxycodone Hcl Immed Release 5 Mg Tablet PO 05/05/23 17:13 10 mg ONCE ONE Administration Discharge Plan Discharge Clinical Impression: Irritable bowel syndrome, Chronic pain Patient Disposition: Home, Self-Care Instructions: Irritable Bowel Syndrome (ED), Chronic Pain (ED) Additional Instructions: Drink plenty of fluids Medicine for anxiety and sleep as prescribed Tramadol for pain Continue to take your dicyclomine Prescriptions: New lorazepam [Ativan] 1 mg tablet 1 mg PO BEDTIME PRN (Reason: anxiety/sleep) Qty: 14 0RF tramadol 50 mg tablet 50 mg PO Q6H PRN (Reason: pain) Qty: 20 0RF No Action omeprazole 20 mg capsule,delayed release(DR/EC) 20 mg PO BID Qty: 60 0RF metoclopramide HCl 10 mg tablet 10 mg PO Q6H PRN (Reason: nausea and vomiting) Qty: 30 0RF tramadol 50 mg tablet 50 mg PO Q6H PRN (Reason: pain) Qty: 20 0RF cefuroxime axetil 500 mg tablet 500 mg PO BID Qty: 20 0RF ondansetron 4 mg tablet,disintegrating 4 mg PO Q6-8H PRN (Reason: nausea and vomiting) Qty: 10 0RF Interventions: ED Discharge Assessment Last Done: 05/05/23 19:32 Discharge Date/Time: 05/05/23 19:33
[2023-05-05 14:04] LABS: Appearance Urine Clear; Color Urine Yellow; Glucose Urine UA Negative (Negative); Leukocyte Esterase Urine Negative (Negative); Nitrite Urine Negative (Negative); PH 7.5 (5.0-9.0); Urine Blood Negative (Negative); Urine Ketones Negative (Negative); Urine Protein Negative (Neg-Trace)
[2023-05-05 14:05] LABS: Urine Pregnancy NEGATIVE (NEGATIVE)
[2023-05-05 14:06] LABS: UPreg QC Valid YES
[2023-05-05 15:40] LABS: MANUAL DIFF FLAG NO
[2023-05-05 15:42] LABS: Basophils Percent Auto 0.5 % (0-2); Eosinophils Absolute Auto 0.1 X10*3/uL (0.0-0.4); Eosinophils Percent Auto 1.6 % (0-4); Hematocrit 36.6 % (37.0-47.0); Hemoglobin 11.9 g/dl (12.0-16.0); Imm Gran Abs Auto 0.03 X10*3/uL (0.00-0.03); Imm Gran Pct Auto 0.3 % (0.0-0.4); Lymphocytes Absolute Auto 2.2 X10*3/uL (1.2-4.9); Lymphocytes Percent Auto 24.9 % (20-40); Mean Corpuscular HGB Conc 32.5 g/dl (31.0-35.0); Mean Corpuscular Volume 76.9 fL (80.0-98.0); Mean Platelet Volume 8.8 fL (9.4-12.3); Monocytes Absolute Auto 0.3 X10*3/uL (0.1-1.2); Monocytes Percent Auto 3.9 % (2-11); Neutrophils Absolute Auto 5.9 x10*3/uL (2.0-8.3); Neutrophils Percent Auto 68.8 % (45-73); Platelet Count 352 X10*3/uL (160-400); Red Blood Count 4.76 X10*6/uL (4.20-5.50); Red Cell Distribution Width 14.5 % (11.0-16.0); White Blood Count 8.6 X10*3/uL (4.8-10.8)
[2023-05-05 16:01] LABS: Alanine Aminotransferase 13 U/L (0-31); Albumin Level 4.5 g/dL (3.5-5.0); Alkaline Phosphatase 78 U/L (39-117); Anion Gap 10 (12-20); Aspartate Amino Transferase 11 U/L (5-31); Bilirubin Direct 0.2 mg/dL (0.0-0.5); Bilirubin Total 0.4 mg/dL (0.0-1.0); Blood Urea Nitrogen 8 mg/dL (9-16); Calcium 9.5 mg/dL (8.4-10.2); Carbon Dioxide 26 mmol/L (22-29); Chloride 108 mmol/L (96-108); Creatinine Clr Calc Pharmacy 97.8; Estimated Glomerular Filt Rate > 60; Glucose Random 110 mg/dL (60-115); Lipase 17 U/L (8-78); Potassium 3.7 mmol/L (3.3-5.1); Sodium 140 mmol/L (135-145); Total Protein 7.2 g/dL (6.5-8.0)
[2023-05-05 16:11] VITALS: BP 144/87; PULSE 65; RESP 16; TEMP 36.8; O2SAT 99
[2023-05-05] MEDS: Magnesium Hydrox/Alum Hydrox 30 ML ORAL.SUSP PO (17:23)
[2023-05-05] MEDS: LORazepam 1 MG TABLET PO (17:23)
[2023-05-05] MEDS: oxyCODONE HCl Immed Release 5 MG TABLET 10 MG PO (17:23)
[2023-05-05] MEDS: Dicyclomine HCl 10 MG CAPSULE 20 MG PO (17:23)
--- NOTE | 2024-05-17 00:56 | ED.ABDPAIN ---
HPI - Abdominal Pain General Chief Complaint: Abdominal Pain Stated Complaint: Back & R/L Side Pain No Injury Time Seen by Provider: 05/05/23 16:25 Source: patient Mode of arrival: ambulatory Limitations: no limitations History of Present Illness ED Provider: won MAS narrative: Patient's history of IBS with complaining of pain which is chronic shoes no nausea no vomiting does have history of constipation getting worse for last 1 week Related Data Previous Rx's ?Medication ?Instructions ?Recorded metoclopramide HCl 10 mg tablet 10 mg PO Q6H PRN nausea and 10/28/22 vomiting #30 tabs omeprazole 20 mg capsule,delayed 20 mg PO BID #60 caps 10/28/22 release cefuroxime axetil 500 mg tablet 500 mg PO BID #20 tabs 01/23/23 ondansetron 4 mg disintegrating 4 mg PO Q6-8H PRN nausea and 01/23/23 tablet vomiting #10 tabs tramadol 50 mg tablet 50 mg PO Q6H PRN pain #20 tabs 01/23/23 lorazepam 1 mg tablet (Ativan) 1 mg PO BEDTIME PRN anxiety/sleep 05/05/23 #14 tabs tramadol 50 mg tablet 50 mg PO Q6H PRN pain #20 tabs 05/05/23 sumatriptan succinate 50 mg tablet See Rx Instructions PO .COMPLEX #5 05/09/23 tabs Allergies Allergy/AdvReac Type Severity Reaction Status Date / Time codeine Allergy Anaphylaxis Verified 01/22/23 23:29 amoxicillin AdvReac Rash Verified 01/22/23 23:29 Review of Systems Review of Systems Yes all other systems are reviewed and are negative [facility] Social History Social History Alcohol intake: never Advance Directives: No Advance Directives Information Provided: No Physical Exam ED Vital Signs: BMI result Body Mass Index 37.5 Appearance: Alert. Oriented X3. No acute distress. Eyes: PERRLA, No Nystagmus ENT: Pharynx normal. Oral Mucosa moist Neck: Normal inspection. Neck supple. CVS: Normal heart rate and rhythm. Pulses normal. Respiratory: No respiratory distress. Equal air entry bilateral, no wheezing/rales/rhonchi Abdomen: Soft and diffuse nonfocal tenderness Bowel sounds are present, no mass palpable, no CVA tenderness Skin: Skin warm and dry. Normal skin color. Normal skin turgor. Extremities: No lower extremity edema. No calf tenderness Neuro: Oriented X 3. No motor deficit. No sensory deficit.No cerebellar signs , cranial nerves II-XII intact Medical Decision Making Medical Decision Making [facility] Narrative: Patient has stable labs with chronic abdominal pain previous workups negative likely has IBS discharge patient home on tramadol and Ativan advised to continue take her dicyclomine follow-up with her PCP Lab Data [facility] Lab Attestation statement: I reviewed the patient's lab results. 05/05/23 15:32 05/05/23 15:33 Labs: Lab Results 05/05/23 05/05/23 05/05/23 Range/Units 13:57 15:32 15:33 WBC 8.6 (4.8-10.8) X10*3/uL RBC 4.76 (4.20-5.50) X10*6/uL Hgb 11.9 L (12.0-16.0) g/dl Hct 36.6 L (37.0-47.0) % MCV 76.9 L (80.0-98.0) fL MCH 25.0 L (27.0-33.0) pg MCHC 32.5 (31.0-35.0) g/dl RDW 14.5 (11.0-16.0) % Plt Count 352 (160-400) X10*3/uL MPV 8.8 L (9.4-12.3) fL Immature Gran % (Auto) 0.3 (0.0-0.4) % Neut % (Auto) 68.8 (45-73) % Lymph % (Auto) 24.9 (20-40) % [place] % (Auto) 3.9 (2-11) % Eos % (Auto) 1.6 (0-4) % Baso % (Auto) 0.5 (0-2) % Lymph # (Auto) 2.2 (1.2-4.9) X10*3/uL [place] # (Auto) 0.3 (0.1-1.2) X10*3/uL Eos # (Auto) 0.1 (0.0-0.4) X10*3/uL Baso # (Auto) 0.0 (0.0-0.2) X10*3/uL Abs Immat Gran (auto) 0.03 (0.00-0.03) X10*3/uL Absolute Neuts (auto) 5.9 (2.0-8.3) x10*3/uL Absolute Nucleated RBC 0.000 (0.0-0.012) X10*3/uL Nucleated RBC % (auto) 0.0 (0.0-0.2) /100WBC Sodium 140 (135-145) mmol/L Potassium 3.7 (3.3-5.1) mmol/L Chloride 108 (96-108) mmol/L Carbon Dioxide 26 (22-29) mmol/L Anion Gap 10 L (12-20) BUN 8 L (9-16) mg/dL Creatinine 0.78 (0.5-1.4) mg/dL Estim Creat Clear Calc 97.8 Estimated GFR > 60 Random Glucose 110 (60-115) mg/dL Calcium 9.5 D (8.4-10.2) mg/dL Magnesium 2.0 (1.6-2.6) mg/dL Total Bilirubin 0.4 (0.0-1.0) mg/dL Direct Bilirubin 0.2 (0.0-0.5) mg/dL AST 11 (5-31) U/L ALT 13 (0-31) U/L Alkaline Phosphatase 78 (39-117) U/L Total Protein 7.2 (6.5-8.0) g/dL Albumin 4.5 (3.5-5.0) g/dL Lipase 17 (8-78) U/L Urine Color Yellow Urine Appearance Clear Urine pH 7.5 (5.0-9.0) Ur Specific [place] 1.020 (1.005-1.025) Urine Protein Negative (Neg-Trace) mg/dL Urine Glucose (UA) Negative (Negative) mg/dL Urine Ketones Negative (Negative) mg/dL Urine Blood Negative (Negative) Urine Nitrite Negative (Negative) Ur Leukocyte Esterase Negative (Negative) Urine Test NEGATIVE (NEGATIVE) Medications Administered Discontinued Medications Generic Name Dose Route Start Last Admin Trade Name Freq PRN Reason Stop Dose Admin Al Hydroxide/Mg Hydroxide 30 ml 05/05/23 17:12 05/05/23 17:23 Magnesium Hydrox/Alum Hydrox 30 Ml Oral.Susp PO 05/05/23 17:13 30 ml ONCE ONE Administration Dicyclomine HCl 20 mg 05/05/23 17:12 05/05/23 17:23 Dicyclomine Hcl 10 Mg Capsule PO 05/05/23 17:13 20 mg ONCE ONE Administration Lorazepam 1 mg 05/05/23 17:12 05/05/23 17:23 Lorazepam 1 Mg Tablet PO 05/05/23 17:13 1 mg ONCE ONE Administration Oxycodone HCl 10 mg 05/05/23 17:12 05/05/23 17:23 Oxycodone Hcl Immed Release 5 Mg Tablet PO 05/05/23 17:13 10 mg ONCE ONE Administration Discharge Plan Discharge Clinical Impression: Irritable bowel syndrome, Chronic pain Patient Disposition: Home, Self-Care Instructions: Irritable Bowel Syndrome (ED), Chronic Pain (ED) Additional Instructions: Drink plenty of fluids Medicine for anxiety and sleep as prescribed Tramadol for pain Continue to take your dicyclomine Prescriptions: New lorazepam [Ativan] 1 mg tablet 1 mg PO BEDTIME PRN (Reason: anxiety/sleep) Qty: 14 0RF tramadol 50 mg tablet 50 mg PO Q6H PRN (Reason: pain) Qty: 20 0RF No Action omeprazole 20 mg capsule,delayed release(DR/EC) 20 mg PO BID Qty: 60 0RF metoclopramide HCl 10 mg tablet 10 mg PO Q6H PRN (Reason: nausea and vomiting) Qty: 30 0RF tramadol 50 mg tablet 50 mg PO Q6H PRN (Reason: pain) Qty: 20 0RF cefuroxime axetil 500 mg tablet 500 mg PO BID Qty: 20 0RF ondansetron 4 mg tablet,disintegrating 4 mg PO Q6-8H PRN (Reason: nausea and vomiting) Qty: 10 0RF sumatriptan succinate 50 mg tablet See Rx Instructions .ROUTE .COMPLEX Qty: 5 0RF Rx Instructions: take 1 tab at onset of headache; if no relief may repeat 1 tab after at least 2 hrs; max = 4 tabs/24 hr Interventions: ED Discharge Assessment Last Done: 05/05/23 19:32 Discharge Date/Time: 05/05/23 19:33 Print Language: [place]
== END 2023-05-05 19:33 | disposition home or self-care (01) ==
PROVIDERS: Physician Assistant; Emergency Provider Internal Medicine
DX: K58.9 Irritable bowel syndrome, unspecified (principal); G89.29 Other chronic pain; M54.50 Low back pain, unspecified; Z79.899 Other long term (current) drug therapy
CPT/HCPCS: 36415; 74018; 80048; 80076; 81003; 81025; 83690; 83735; 85025; 99283; 99284

== ENCOUNTER 2023-05-08 20:56 | Emergency (ER) | payer MEDICAID, SELFPAY ==
--- NOTE | ~2023-05-08 | CT_ITS ---
EXAMINATION: CT head/brain wo IV con, CT sinus wo IV con CLINICAL INFORMATION: Reason for Exam severe GONZALES, please include sinuses COMPARISON: None. TECHNIQUE: Contiguous axial imaging was performed of the head and sinuses without intravenous contrast. Sagittal and coronal reformatted images were obtained. This CT examination was performed using dose optimization techniques as appropriate, variously including the following: * Automated exposure control * Adjustment of mA and/or kV according to patient size (this includes techniques or standardized protocols for targeted exams where dose is matched to indication/reason for exam; i.e. extremities or head) Use of iterative reconstruction technique DLP: 720 mGy-cm FINDINGS: CT Head: No acute osseous or soft tissue abnormality. The mastoid air cells are well aerated. There is no evidence of acute intracranial hemorrhage or territorial infarction. No abnormal mass effect or midline shift is seen. [place] to white matter differentiation is well preserved. No extra-axial fluid collections are identified. No hydrocephalus. No significant volume loss. There is no abnormal attenuation within the brain parenchyma. CT Sinuses: The paranasal sinuses are clear. Postsurgical changes from right maxillary antrostomy and partial ethmoidectomy. CT/CT head/brain wo IV con IMPRESSION: 1. No acute intracranial abnormality including hemorrhage, mass effect, hydrocephalus, or acute territorial edematous infarction. 2. The paranasal sinuses are clear.
--- NOTE | ~2023-05-08 | CT_ITS ---
EXAMINATION: CT head/brain wo IV con, CT sinus wo IV con CLINICAL INFORMATION: Reason for Exam severe GONZALES, please include sinuses COMPARISON: None. TECHNIQUE: Contiguous axial imaging was performed of the head and sinuses without intravenous contrast. Sagittal and coronal reformatted images were obtained. This CT examination was performed using dose optimization techniques as appropriate, variously including the following: * Automated exposure control * Adjustment of mA and/or kV according to patient size (this includes techniques or standardized protocols for targeted exams where dose is matched to indication/reason for exam; i.e. extremities or head) Use of iterative reconstruction technique DLP: 720 mGy-cm FINDINGS: CT Head: No acute osseous or soft tissue abnormality. The mastoid air cells are well aerated. There is no evidence of acute intracranial hemorrhage or territorial infarction. No abnormal mass effect or midline shift is seen. [place] to white matter differentiation is well preserved. No extra-axial fluid collections are identified. No hydrocephalus. No significant volume loss. There is no abnormal attenuation within the brain parenchyma. CT Sinuses: The paranasal sinuses are clear. Postsurgical changes from right maxillary antrostomy and partial ethmoidectomy. CT/CT sinus wo IV con IMPRESSION: 1. No acute intracranial abnormality including hemorrhage, mass effect, hydrocephalus, or acute territorial edematous infarction. 2. The paranasal sinuses are clear.
[2023-05-08 21:13] VITALS: BP 127/70; PULSE 72; RESP 18; TEMP 36.6; O2SAT 96; BMI 37.4
[2023-05-08 22:45] VITALS: BP 120/67; PULSE 66; RESP 16; TEMP 37.1; O2SAT 98
--- NOTE | 2023-05-09 00:05 | ED_ITS ---
HPI - Headache General Chief Complaint: Headache Stated Complaint: infection in head Time Seen by Provider: 05/08/23 23:03 Source: patient Mode of arrival: ambulatory Limitations: no limitations History of Present Illness HPI Narrative: Patient comes to the emergency room complaining of 10 days of head pressure. P atient states that she has had severe sinusitis in the past which required hospitalization. Patient states that it feels the same, when patient moves her head side to side, she can feel the dullness shifting in her forehead. Patient denies fever chills, patient complaining also of a headache. Related Data Previous Rx's Medication Instructions Recorded metoclopramide HCl 10 mg tablet 10 mg PO Q6H PRN nausea and 10/28/22 vomiting #30 tabs omeprazole 20 mg capsule,delayed 20 mg PO BID #60 caps 10/28/22 release cefuroxime axetil 500 mg tablet 500 mg PO BID #20 tabs 01/23/23 ondansetron 4 mg disintegrating 4 mg PO Q6-8H PRN nausea and 01/23/23 tablet vomiting #10 tabs tramadol 50 mg tablet 50 mg PO Q6H PRN pain #20 tabs 01/23/23 lorazepam 1 mg tablet (Ativan) 1 mg PO BEDTIME PRN anxiety/sleep 05/05/23 #14 tabs tramadol 50 mg tablet 50 mg PO Q6H PRN pain #20 tabs 05/05/23 sumatriptan succinate 50 mg tablet See Rx Instructions PO .COMPLEX #5 05/09/23 tabs Allergies Allergy/AdvReac Type Severity Reaction Status Date / Time codeine Allergy Anaphylaxis Verified 01/22/23 23:29 amoxicillin AdvReac Rash Verified 01/22/23 23:29 Review of Systems Review of Systems: Constitutional : No Weight loss, No Fever, No Chills, No Night Sweats, No Fatigue, No Malaise ENT/Mouth : Complaining of frontal sinuses pain and pressure. No Hearing loss, No Ear Pain, No Nasal Congestion, No Hoarseness, No sore throat, No Rhinorrhea, No Swallowing Difficulty Eyes: No Eye Pain, No Swelling, No Redness, No Foreign Body, No Discharge, No Vision Changes Cardiovascular : No Chest Pain, No SOB, No Dyspnea on Exertion, No Orthopnea, No Edema, No Palpitations Respiratory : No Cough, No Sputum, No Wheezing, No Smoke Exposure, No Dyspnea Gastrointestinal : No Nausea, No Vomiting, No Diarrhea, No Constipation, No abdominal Pain, No Hematochezia, No Melena Genitourinary : no irregular bleeding, No Dysuria, No Urinary Frequency, No Hematuria, No Urinary Incontinence, No Urgency, No Flank Pain, No Urinary Flow Changes, No Hesitancy Musculoskeletal : No joint pain, No Myalgias, No Joint Swelling Skin : No Skin Lesions, No rash Neuro : No Weakness, No Numbness, No Paresthesias, No Loss of Consciousness, No Dizziness, complaining of Headache Psych : No Anxiety/Panic, No Depression, No SI/HI/AH/VH, No Social Issues, Heme/Lymph: No Bruising, No Bleeding,No Lymphadenopathy Endocrine : No Polyuria, No Polydipsia, No Temperature Intolerance [facility] Social History Social History Alcohol intake: never Advance Directives: No Advance Directives Information Provided: No Physical Exam Vital Signs: Vital Signs: Last Vital Signs Temp 97.9 F 05/09/23 00:55 Pulse 60 05/09/23 00:55 Resp 18 05/09/23 00:55 BP 129/78 05/09/23 00:55 Pulse Ox 100 05/09/23 00:55 O2 Del Method Room Air 05/09/23 00:55 BMI result Body Mass Index 37.4 Const: Other: Appearance: Alert. Oriented X3. Patient symptom comfortable Eyes: Pupils equal, round and reactive to light. ENT: Pharynx normal. Pain reproducible to palpation in the frontal sinuses Neck: Normal inspection. Neck supple. No lymph nodes noted. No crepitus CVS: Normal heart rate and rhythm. Pulses normal. Normal S1 and S2 Respiratory: No respiratory distress. Breath sounds normal. No Wheezing. No rales Abdomen: Soft and nontender. No rigidity. No distention. Skin: Skin warm and dry. Normal skin color. Normal skin turgor. Extremities: No lower extremity edema. No Lacerations. No Rash Neuro: Oriented X 3. No motor deficit. No sensory deficit. Moving all extremities. No slurred speech. CN 2 through 12 grossly intact Psych: calm, cooperative, normal affect Course Course Course Narrative: -patient getting IV fluids, Reglan, Benadryl and Toradol -head CT and labs pending Medications Administered Discontinued Medications Generic Name Dose Route Start Last Admin Trade Name Carlitos PRN Reason Stop Dose Admin Diphenhydramine HCl 50 mg 05/09/23 00:02 05/09/23 01:56 Diphenhydramine Hcl 50 Mg/Ml Vial IVPUSH 05/09/23 00:03 50 mg ONCE ONE Administration Sodium Chloride 1,000 mls @ 999 mls/hr 05/09/23 00:02 05/09/23 01:57 Ns IVCONT 05/09/23 01:02 Not Given .Q1H1M ONE Ketorolac Tromethamine 30 mg 05/09/23 00:04 05/09/23 01:56 Ketorolac Tromethamine 30 Mg/Ml Vial IVPUSH 05/09/23 00:05 30 mg ONCE ONE Administration Metoclopramide HCl 10 mg 05/09/23 00:02 05/09/23 01:56 Metoclopramide Hcl 10 Mg/2 Ml Vial IVPUSH 05/09/23 00:03 10 mg ONCE ONE Administration Medical Decision Making Medical Decision Making MDM Narrative: -my interpretation head CT and sinuses: Sinuses are clear, no intracranial mass or bleed -patient likely having a migraine headache -patient feeling better after IV medications Differential Diagnosis Differential Diagnoses: The differential diagnosis associated with the presentation includes (Sinusitis, tension headache, migraine headache) Admission/Observation Consideration of admission/observation: Escalation of care including admission/observation considered (Patient has history of complex infection of the sinuses, admission was considered) Lab Data MDM Lab Attestation statement: I reviewed the patient's lab results. 05/09/23 00:30 05/09/23 00:30 Labs: Lab Results 05/09/23 05/09/23 05/09/23 Range/Units 00:30 00:30 00:30 WBC 8.0 (4.8-10.8) X10*3/uL RBC 4.51 (4.20-5.50) X10*6/uL Hgb 11.2 L (12.0-16.0) g/dl Hct 34.1 L (37.0-47.0) % MCV 75.6 L (80.0-98.0) fL MCH 24.8 L (27.0-33.0) pg MCHC 32.8 (31.0-35.0) g/dl RDW 14.4 (11.0-16.0) % Plt Count 316 (160-400) X10*3/uL MPV 8.8 L (9.4-12.3) fL Immature Gran % (Auto) 0.2 (0.0-0.4) % Neut % (Auto) 58.0 (45-73) % Lymph % (Auto) 34.2 (20-40) % [place] % (Auto) 5.5 (2-11) % Eos % (Auto) 1.5 (0-4) % Baso % (Auto) 0.6 (0-2) % Lymph # (Auto) 2.8 (1.2-4.9) X10*3/uL [place] # (Auto) 0.4 (0.1-1.2) X10*3/uL Eos # (Auto) 0.1 (0.0-0.4) X10*3/uL Baso # (Auto) 0.1 (0.0-0.2) X10*3/uL Abs Immat Gran (auto) 0.02 (0.00-0.03) X10*3/uL Absolute Neuts (auto) 4.7 (2.0-8.3) x10*3/uL Absolute Nucleated RBC 0.000 (0.0-0.012) X10*3/uL Nucleated RBC % (auto) 0.0 (0.0-0.2) /100WBC Sodium 142 (135-145) mmol/L Potassium 3.3 (3.3-5.1) mmol/L Chloride 109 H (96-108) mmol/L Carbon Dioxide 23 (22-29) mmol/L Anion Gap 13 (12-20) BUN 11 (9-16) mg/dL Creatinine 0.77 (0.5-1.4) mg/dL Estim Creat Clear Calc 98.9 Estimated GFR > 60 Random Glucose 107 (60-115) mg/dL Lactic Acid 0.8 (0.5-2.0) mmol/L Calcium 9.4 (8.4-10.2) mg/dL Independent Interpretation I performed an independent interpretation of an: CT Scan Radiology Impression Discussion of test interpretation with radiology: I have reviewed the radiologist's reading. Radiologist Impression: CT Head: No acute osseous or soft tissue abnormality. The mastoid air cells are well aerated. There is no evidence of acute intracranial hemorrhage or territorial infarction. No abnormal mass effect or midline shift is seen. [place] to white matter differentiation is well preserved. No extra-axial fluid collections are identified. No hydrocephalus. No significant volume loss. There is no abnormal attenuation within the brain parenchyma. CT Sinuses: The paranasal sinuses are clear. Postsurgical changes from right maxillary antrostomy and partial ethmoidectomy. ? CT/CT head/brain wo IV con IMPRESSION: ? 1.? No acute intracranial abnormality including hemorrhage, mass effect, hydrocephalus, or acute territorial edematous infarction. ? 2.? The paranasal sinuses are clear. Critical Care Time Critical Care Time Critical Care Time: Yes Total Critical Care Time: 45 Attestation: I have personally provided critical care time. Time includes review of lab data, radiology results, discussion with consultants, and monitoring for potential decompensation. Intervention performed as documented. Discharge Plan Discharge Clinical Impression: Migraine Patient Disposition: Home, Self-Care Instructions: Acute Headache (ED) Additional Instructions: Please follow-up with your primary care physician tomorrow. If you have any worsening or new symptoms, please return to the emergency room or call 911 Prescriptions: New sumatriptan succinate 50 mg tablet See Rx Instructions .ROUTE .COMPLEX Qty: 5 0RF Rx Instructions: take 1 tab at onset of headache; if no relief may repeat 1 tab after at least 2 hrs; max = 4 tabs/24 hr No Action omeprazole 20 mg capsule,delayed release(DR/EC) 20 mg PO BID Qty: 60 0RF metoclopramide HCl 10 mg tablet 10 mg PO Q6H PRN (Reason: nausea and vomiting) Qty: 30 0RF tramadol 50 mg tablet 50 mg PO Q6H PRN (Reason: pain) Qty: 20 0RF cefuroxime axetil 500 mg tablet 500 mg PO BID Qty: 20 0RF ondansetron 4 mg tablet,disintegrating 4 mg PO Q6-8H PRN (Reason: nausea and vomiting) Qty: 10 0RF lorazepam [Ativan] 1 mg tablet 1 mg PO BEDTIME PRN (Reason: anxiety/sleep) Qty: 14 0RF tramadol 50 mg tablet 50 mg PO Q6H PRN (Reason: pain) Qty: 20 0RF
[2023-05-09 00:35] LABS: MANUAL DIFF FLAG NO
[2023-05-09 00:36] LABS: Basophils Absolute Auto 0.1 X10*3/uL (0.0-0.2); Basophils Percent Auto 0.6 % (0-2); Eosinophils Absolute Auto 0.1 X10*3/uL (0.0-0.4); Eosinophils Percent Auto 1.5 % (0-4); Hematocrit 34.1 % (37.0-47.0); Hemoglobin 11.2 g/dl (12.0-16.0); Imm Gran Abs Auto 0.02 X10*3/uL (0.00-0.03); Imm Gran Pct Auto 0.2 % (0.0-0.4); Lymphocytes Absolute Auto 2.8 X10*3/uL (1.2-4.9); Lymphocytes Percent Auto 34.2 % (20-40); Mean Corpuscular HGB Conc 32.8 g/dl (31.0-35.0); Mean Corpuscular Hemoglobin 24.8 pg (27.0-33.0); Mean Corpuscular Volume 75.6 fL (80.0-98.0); Mean Platelet Volume 8.8 fL (9.4-12.3); Monocytes Absolute Auto 0.4 X10*3/uL (0.1-1.2); Monocytes Percent Auto 5.5 % (2-11); Neutrophils Absolute Auto 4.7 x10*3/uL (2.0-8.3); Platelet Count 316 X10*3/uL (160-400); Red Blood Count 4.51 X10*6/uL (4.20-5.50); Red Cell Distribution Width 14.4 % (11.0-16.0)
[2023-05-09 00:48] LABS: Lactic Acid 0.8 mmol/L (0.5-2.0)
[2023-05-09 00:51] LABS: Anion Gap 13 (12-20); Blood Urea Nitrogen 11 mg/dL (9-16); Calcium 9.4 mg/dL (8.4-10.2); Carbon Dioxide 23 mmol/L (22-29); Chloride 109 mmol/L (96-108); Creatinine Clr Calc Pharmacy 98.9; Estimated Glomerular Filt Rate > 60; Glucose Random 107 mg/dL (60-115); Potassium 3.3 mmol/L (3.3-5.1); Sodium 142 mmol/L (135-145)
[2023-05-09 00:55] VITALS: BP 129/78; PULSE 60; RESP 18; TEMP 36.6; O2SAT 100
--- NOTE | 2023-05-09 00:55 | MHC.EDTECH ---
Labs and blood cultures were drawn and sent to lab,vitals were obtained
[2023-05-09] MEDS: Ketorolac Tromethamine 30 MG/ML VIAL IVPUSH (01:56)
[2023-05-09] MEDS: Metoclopramide HCl 10 MG/2 ML VIAL IVPUSH (01:56)
[2023-05-09] MEDS: diphenhydrAMINE HCL 50 MG/ML VIAL IVPUSH (01:56)
[2023-05-09 03:36] VITALS: BP 112/57; PULSE 60; RESP 16; O2SAT 99
== END 2023-05-09 03:37 | disposition home or self-care (01) ==
PROVIDERS: Emergency Provider Emergency Medicine
DX: G43.909 Migraine, unspecified, not intractable, without status migrainosus (principal); Z79.899 Other long term (current) drug therapy
CPT/HCPCS: 36415; 70450; 70486; 80048; 83605; 85025; 87040; 96374; 96375; 99283; 99284; J1200; J1885; J2765

== ENCOUNTER 2023-10-20 15:49 | Emergency (ER) | payer MEDICAID, SELFPAY ==
--- NOTE | ~2023-10-20 | XR_ITS ---
EXAMINATION: XR CHEST CLINICAL INFORMATION: Chest pain COMPARISON: None available. TECHNIQUE: 2 views of the chest were obtained. FINDINGS: No significant abnormality is noted involving the heart, lungs, mediastinum, bony thorax or soft tissues. No focal consolidation, interstitial pulmonary edema or pneumothorax. No pleural effusion. XR/XR chest 2V IMPRESSION: No acute cardiopulmonary disease.
--- NOTE | 2023-10-20 15:52 | ECG_ITS ---
Test Reason : CP Blood Pressure : / mmHG Vent. Rate : 075 BPM Atrial Rate : 078 BPM P-R Int : 000 ms QRS Dur : 062 ms QT Int : 378 ms P-R-T Axes : 000 077 054 degrees QTc Int : 422 ms Artifact Normal sinus rhythm Septal infarct , age undetermined Abnormal ECG No previous ECGs available Referred By: Kendra Catherine Electronically Signed By:Serg King
[2023-10-20 16:19] VITALS: BP 123/61; PULSE 69; RESP 18; TEMP 36.9; O2SAT 100; BMI 36.5
--- NOTE | 2023-10-20 16:19 | ED_ITS ---
HPI - Chest Pain General Chief Complaint: Chest Pain Stated Complaint: chest pain Time Seen by Provider: 10/20/23 22:32 Source: patient Mode of arrival: ambulatory History of Present Illness HPI narrative: 38-year-old female arrives with complaints of 2 days of chest discomfort, states it is her whole entire chest has not been associated with any dizziness, fevers, chills, new cough. Patient endorses that she does have a known hiatal hernia and states that her primary care doctor is in [place] in her banquet set up person is in [place]. She denies any recent nausea or vomiting but does states she suffers from acid reflux. Related Data Previous Rx's Medication Instructions Recorded metoclopramide HCl 10 mg tablet 10 mg PO Q6H PRN nausea and 10/28/22 vomiting #30 tabs omeprazole 20 mg capsule,delayed 20 mg PO BID #60 caps 10/28/22 release cefuroxime axetil 500 mg tablet 500 mg PO BID #20 tabs 01/23/23 ondansetron 4 mg disintegrating 4 mg PO Q6-8H PRN nausea and 01/23/23 tablet vomiting #10 tabs tramadol 50 mg tablet 50 mg PO Q6H PRN pain #20 tabs 01/23/23 lorazepam 1 mg tablet (Ativan) 1 mg PO BEDTIME PRN anxiety/sleep 05/05/23 #14 tabs tramadol 50 mg tablet 50 mg PO Q6H PRN pain #20 tabs 05/05/23 sumatriptan succinate 50 mg tablet See Rx Instructions PO .COMPLEX #5 05/09/23 tabs Allergies Allergy/AdvReac Type Severity Reaction Status Date / Time codeine Allergy Anaphylaxis Verified 01/22/23 23:29 amoxicillin AdvReac Rash Verified 01/22/23 23:29 Review of Systems 2 Review of Systems: Pertinent positives and negatives as stated in HPI [facility] Past Medical History Source: nursing notes reviewed Social History Social History Alcohol intake: never Advance Directives: No Advance Directives Information Provided: No Physical Exam 2 Vital Signs: Vital Signs: Last Vital Signs Temp 98.2 F 10/20/23 22:37 Pulse 63 10/20/23 22:37 Resp 18 10/20/23 16:19 BP 115/37 L 01/23/24 22:37 Pulse Ox 100 10/20/23 22:37 O2 Del Method Room Air 10/20/23 22:37 BMI result Body Mass Index 36.5 VITAL SIGNS: Reviewed. GENERAL: Well developed, well nourished, in no acute distress. HEAD: Normocephalic/atraumatic EYES: PERRLA, EOMI EARS: Ext canals without abnormality, TMs non-bulging and non-erythematous NOSE: Nares patent bilateral OROPHARYNX: no oral lesions noted, posterior pharynx clear and non-erythematous without noted tonsillar enlargement/erythema/exudates NECK: Supple, no adenopathy LUNGS: Normal breath sounds. No adventitious sounds or accessory muscle use. SpO2<100> CARDIOVASCULAR: Regular rate and rhythm without noted murmurs ABDOMEN: Soft, non-tender, non-distended with bowel sounds. MUSCULOSKELETAL: No tenderness, deformities, or effusions noted on gross inspection. EXTREMITIES: No cyanosis, clubbing or edema. SKIN: Inspection of the skin reveals no rashes NEUROLOGIC: Alert and oriented x 4. Strength and sensation to light touch were grossly intact x 4. Course Course Course Narrative: RME: 38 year-old F w/ PMHx GERD presenting to the ED c/o chest pain elephant sitting on chest & body numbness x yesterday worsening 30mins [employer], +SOB & nausea. denies vomiting tearful, uncomfortable, anxious EKG, labs, CXR, viral testing ordered Full HPI, ROS and PE to be performed by primary ED provider. Medications Administered Discontinued Medications Generic Name Dose Route Start Last Admin Trade Name Freq PRN Reason Stop Dose Admin Al Hydroxide/Mg Hydroxide 30 ml 10/20/23 23:14 10/20/23 23:22 Magnesium Hydrox/Alum Hydrox 30 Ml Oral.Susp PO 10/20/23 23:15 30 ml ONCE ONE Administration Lidocaine HCl 10 ml 10/20/23 23:14 10/20/23 23:22 Lidocaine Hcl Viscous 2 % 15 Ml Solution MUCOUS MEM 10/20/23 23:15 10 ml ONCE ONE Administration Sucralfate 1 gm 10/20/23 23:14 10/20/23 23:23 Sucralfate Oral Suspension 1 Gm/10 Ml Oral.Susp PO 10/20/23 23:15 1 gm ONCE ONE Administration Medical Decision Making Medical Decision Making MDM Narrative: 38-year-old female with history and clinical presentation, DDX: Anxiety, costochondritis, GERD, low clinical suspicion for cardiopulmonary etiology. I reviewed all investigations and patient's hematologic indices are grossly stable with prior as there is no leukocytosis or left shift, there is a microcytic anemia that is unchanged and no thrombocytopenia. Chemistry indices do not demonstrate any THANIA or electrolyte/liver enzyme abnormalities and I sensitivity troponin is undetectable. Viral testing is negative for COVID-19 and influenza. Chest x-ray does not demonstrate infiltrate or venous congestion and otherwise my interpretation is in agreement with radiology's impression. EKG actually demonstrates normal sinus rhythm although quality demonstrates significant artifact. Lab Data MDM Lab Attestation statement: I reviewed the patient's lab results. Please see the discussion above 10/20/23 18:05 10/20/23 18:05 Labs: Lab Results 10/20/23 10/20/23 Range/Units 18:05 20:18 WBC 8.2 (4.8-10.8) X10*3/uL RBC 4.76 (4.20-5.50) X10*6/uL Hgb 11.8 L (12.0-16.0) g/dl Hct 35.8 L (37.0-47.0) % MCV 75.2 L (80.0-98.0) fL MCH 24.8 L (27.0-33.0) pg MCHC 33.0 (31.0-35.0) g/dl RDW 14.7 (11.0-16.0) % Plt Count 279 (160-400) X10*3/uL MPV 9.3 L (9.4-12.3) fL Immature Gran % (Auto) 0.2 (0.0-0.4) % Neut % (Auto) 71.4 (45-73) % Lymph % (Auto) 20.9 (20-40) % [place] % (Auto) 5.3 (2-11) % Eos % (Auto) 1.8 (0-4) % Baso % (Auto) 0.4 (0-2) % Lymph # (Auto) 1.7 (1.2-4.9) X10*3/uL [place] # (Auto) 0.4 (0.1-1.2) X10*3/uL Eos # (Auto) 0.2 (0.0-0.4) X10*3/uL Baso # (Auto) 0.0 (0.0-0.2) X10*3/uL Abs Immat Gran (auto) 0.02 (0.00-0.03) X10*3/uL Absolute Neuts (auto) 5.9 (2.0-8.3) x10*3/uL Absolute Nucleated RBC 0.000 (0.0-0.012) X10*3/uL Nucleated RBC % (auto) 0.0 (0.0-0.2) /100WBC Sodium 141 (135-145) mmol/L Potassium 3.5 (3.3-5.1) mmol/L Chloride 108 (96-108) mmol/L Carbon Dioxide 25 (22-29) mmol/L Anion Gap 12 (12-20) BUN 13 (9-16) mg/dL Creatinine 0.74 (0.5-1.4) mg/dL Estim Creat Clear Calc 100.5 Estimated GFR > 60 Random Glucose 102 (60-115) mg/dL Calcium 9.4 (8.4-10.2) mg/dL Magnesium 1.9 (1.6-2.6) mg/dL Total Bilirubin 0.3 (0.0-1.0) mg/dL Direct Bilirubin 0.1 (0.0-0.5) mg/dL AST 10 (5-31) U/L ALT 10 (0-31) U/L Alkaline Phosphatase 66 (39-117) U/L Troponin I High Sens < 2.7 (<3.5-17.0) ng/L Total Protein 7.2 (6.5-8.0) g/dL Albumin 4.4 (3.5-5.0) g/dL Lipase 27 (8-78) U/L COVID-19 (KIM) Negative (Negative) COVID-19 Clin Com See Note Influenza Type A (HILLARY) Invalid Negative (Negative) Influenza Type B (IHLLARY) Invalid Negative (Negative) Influenza A & B Note See Note See Note Independent Interpretation I performed an independent interpretation of an: EKG Interpretation: Normal sinus rhythm, HR -75, no STEMI, HI/QRS/QTC is within normal limits. Radiology Impression Discussion of test interpretation with radiology: I have reviewed the radiologist's reading. Radiologist Impression: Please see the discussion above External Record Review External record reviewed: Outpatient record, Prior outpatient labs and Prior outpatient radiology Critical Care Time Critical Care Time Critical Care Time: Yes Total Critical Care Time: 30 Attestation: I personally attest to this time spent taking care of the patient. Discharge Plan Discharge Clinical Impression: Atypical chest pain, GERD (gastroesophageal reflux disease) Patient Disposition: Home, Self-Care Instructions: Diet for Stomach Ulcers and Gastritis (ED), Gastroesophageal Reflux Disease (ED), Indigestion (ED) Additional Instructions: 1. Resume all home medications as prescribed. 2. I recommend additional Mylanta prior to each meal in combination with your prescription for omeprazole twice a day. 3. Please follow-up with your primary care doctor by calling the office 1st thing in the morning as well as reaching out to your banquet set up person in [place] by calling the office 1st thing in the morning. Return to the ER if you have any worsening or change in your symptoms. Prescriptions: No Action omeprazole 20 mg capsule,delayed release(DR/EC) 20 mg PO BID Qty: 60 0RF metoclopramide HCl 10 mg tablet 10 mg PO Q6H PRN (Reason: nausea and vomiting) Qty: 30 0RF tramadol 50 mg tablet 50 mg PO Q6H PRN (Reason: pain) Qty: 20 0RF cefuroxime axetil 500 mg tablet 500 mg PO BID Qty: 20 0RF ondansetron 4 mg tablet,disintegrating 4 mg PO Q6-8H PRN (Reason: nausea and vomiting) Qty: 10 0RF sumatriptan succinate 50 mg tablet See Rx Instructions .ROUTE .COMPLEX Qty: 5 0RF Rx Instructions: take 1 tab at onset of headache; if no relief may repeat 1 tab after at least 2 hrs; max = 4 tabs/24 hr lorazepam [Ativan] 1 mg tablet 1 mg PO BEDTIME PRN (Reason: anxiety/sleep) Qty: 14 0RF tramadol 50 mg tablet 50 mg PO Q6H PRN (Reason: pain) Qty: 20 0RF
[2023-10-20 18:11] LABS: Basophils Percent Auto 0.4 % (0-2); Eosinophils Absolute Auto 0.2 X10*3/uL (0.0-0.4); Eosinophils Percent Auto 1.8 % (0-4); Hematocrit 35.8 % (37.0-47.0); Hemoglobin 11.8 g/dl (12.0-16.0); Imm Gran Abs Auto 0.02 X10*3/uL (0.00-0.03); Imm Gran Pct Auto 0.2 % (0.0-0.4); Lymphocytes Absolute Auto 1.7 X10*3/uL (1.2-4.9); Lymphocytes Percent Auto 20.9 % (20-40); MANUAL DIFF FLAG NO; Mean Corpuscular Hemoglobin 24.8 pg (27.0-33.0); Mean Corpuscular Volume 75.2 fL (80.0-98.0); Mean Platelet Volume 9.3 fL (9.4-12.3); Monocytes Absolute Auto 0.4 X10*3/uL (0.1-1.2); Monocytes Percent Auto 5.3 % (2-11); Neutrophils Absolute Auto 5.9 x10*3/uL (2.0-8.3); Neutrophils Percent Auto 71.4 % (45-73); Platelet Count 279 X10*3/uL (160-400); Red Blood Count 4.76 X10*6/uL (4.20-5.50); Red Cell Distribution Width 14.7 % (11.0-16.0); White Blood Count 8.2 X10*3/uL (4.8-10.8)
[2023-10-20 18:25] LABS: Alanine Aminotransferase 10 U/L (0-31); Albumin Level 4.4 g/dL (3.5-5.0); Alkaline Phosphatase 66 U/L (39-117); Anion Gap 12 (12-20); Aspartate Amino Transferase 10 U/L (5-31); Bilirubin Direct 0.1 mg/dL (0.0-0.5); Bilirubin Total 0.3 mg/dL (0.0-1.0); Blood Urea Nitrogen 13 mg/dL (9-16); Calcium 9.4 mg/dL (8.4-10.2); Carbon Dioxide 25 mmol/L (22-29); Chloride 108 mmol/L (96-108); Creatinine Clr Calc Pharmacy 100.5; Estimated Glomerular Filt Rate > 60; Glucose Random 102 mg/dL (60-115); Lipase 27 U/L (8-78); Magnesium 1.9 mg/dL (1.6-2.6); Potassium 3.5 mmol/L (3.3-5.1); Sodium 141 mmol/L (135-145); Total Protein 7.2 g/dL (6.5-8.0)
[2023-10-20 18:32] LABS: Troponin-I High Sensitivity < 2.7 ng/L (<3.5-17.0)
[2023-10-20 18:33] LABS: COVID-19 Test Negative (Negative); IDNOW Serial# 08D9AD1C
[2023-10-20 18:47] LABS: IDNOW Serial# 08D9AD1C; Influenza A Invalid (Negative); Influenza B2 Invalid (Negative)
[2023-10-20 21:01] LABS: IDNOW Serial# 152EDE1D; Influenza A Negative (Negative); Influenza B2 Negative (Negative)
[2023-10-20 22:37] VITALS: BP 115/37; PULSE 63; TEMP 36.8; O2SAT 100
[2023-10-20] MEDS: Magnesium Hydrox/Alum Hydrox 30 ML ORAL.SUSP PO (23:22)
[2023-10-20] MEDS: Lidocaine HCl Viscous 2 % 15 ML SOLUTION 10 ML MUCOUS MEM (23:22)
[2023-10-20] MEDS: Sucralfate Oral Suspension 1 GM/10 ML ORAL.SUSP PO (23:23)
== END 2023-10-21 00:47 | disposition home or self-care (01) ==
PROVIDERS: Physician Assistant; Emergency Provider Student in an Organized Health Care Education/Training Program
DX: R07.89 Other chest pain (principal); K21.9 Gastro-esophageal reflux disease without esophagitis; R06.02 Shortness of breath; Z11.52 Encounter for screening for COVID-19
CPT/HCPCS: 71046; 80048; 80076; 83690; 83735; 84484; 85025; 87502; 87635; 93005; 99284; 99285

== ENCOUNTER → 2023-10-20 15:52 | Outpatient (BNV) | payer MEDICAID, SELFPAY | PROVIDERS: Emergency Provider Student in an Organized Health Care Education/Training Program; Visit Provider Internal Medicine Cardiovascular Disease | DX: R94.31 Abnormal electrocardiogram [ECG] [EKG] (principal) | CPT/HCPCS: 93010 ==